=== PATIENT | male | born 1970 | race Caucasian/White ===

== ENCOUNTER → 2017-03-27 | Outpatient (CLI) | payer BC ==
--- NOTE | 2017-03-27 13:49 | KCIC ---
KNEE BILAT 2V Indication: Right and left knee pain. . Comparison: No comparison is available. FINDINGS: No evidence of acute fracture. No bone destruction. Joint spaces are intact. Small superior patellar enthesophytes are incidentally noted bilaterally. IMPRESSION: No evidence of acute radiographic abnormality. Electronically signed by: Dylan Hinton MD (03/27/2017 1:46 PM) [id number]
== END | disposition home or self-care (01) ==
LOC: KCIC 12:13
PROVIDERS: ATTEND Nurse Practitioner Family
DX: M25.562 Pain in left knee (principal)
CPT/HCPCS: 73560

== ENCOUNTER → 2017-03-31 | Outpatient (CLI) | payer BC ==
--- NOTE | 2017-03-31 11:09 | KCIC ---
CHEST PA LATERAL History: Leukocytosis, smoker of 20 years Comparison: None. Findings: There is no infiltrate, pneumothorax, or effusion. The cardiac silhouette is within normal limits in size. The trachea is in the midline. No acute osseous abnormality is identified. Impression: 1. There is no evidence of acute cardiopulmonary disease. Electronically signed by: Griffin Lake MD (03/31/2017 11:04 AM) [id number]
== END | disposition home or self-care (01) ==
LOC: KCIC 09:57
PROVIDERS: ATTEND Nurse Practitioner Family
DX: D72.829 Elevated white blood cell count, unspecified (principal); Z87.891 Personal history of nicotine dependence
CPT/HCPCS: 71020